=== PATIENT | female | born 1955 | race Caucasian/White ===

== ENCOUNTER 2022-03-02 09:13 | Outpatient (CLI) | payer MEDICARE, OTHER, SELFPAY ==
--- NOTE | 2022-03-02 09:15 | CRLHL7_ITS ---
For Patients: As a result of the Century Cures Act, medical imaging exams and procedure reports are released immediately into your electronic medical record. You may view this report before your referring provider. If you have questions, please contact your health care provider. BILATERAL SCREENING MAMMOGRAM WITH COMPUTER-AIDED DETECTION TECHNIQUE: CC and MLO views were obtained. These mammographic images have been obtained using full-field digital technique. These mammographic images were interpreted with the benefit of computer-aided detection. COMPARISON FILM: 02/20/21, 03/10/20, 03/10/19. FINDINGS: There are scattered areas of fibroglandular density IMPRESSION: There is no radiographic evidence for malignancy. ASSESSMENT: BI-RADS Category 1: Negative RECOMMENDATION: Routine screening mammogram in 1 year. A lay language report of this examination will be provided to the patient. Reece Hodgson M.D. Diagnostic Radiologist [email or web address] MIESHA/Dictated by: Reece Hodgson MD @ 03/02/2022 10:12:00 AM (Electronically Signed)
[2022-03-02 14:49] LABS: Chloride* 98 mmol/L (96-114); Sodium* 138 mmol/L (135-149)
[2022-03-02 14:52] LABS: Carbon Dioxide* 30 mmol/L (20-32); Creatinine* 0.8 mg/dL (0.5-1.5); Estimated Glomerular Filt Rate 81 ml/min
[2022-03-02 14:53] LABS: Blood Urea Nitrogen* 20 mg/dL (7-30); Calcium* 10.5 mg/dL (8.4-10.6); Glucose* 117 mg/dL (60-115)
== END 2022-03-02 09:14 | disposition home or self-care (01) ==
LOC: MAMMO 09:17
PROVIDERS: PCP Internal Medicine; Visit Provider Internal Medicine
DX: Z12.31 Encounter for screening mammogram for malignant neoplasm of breast (principal); I10 Essential (primary) hypertension
CPT/HCPCS: 36415; 77063; 77067; 80048

== ENCOUNTER 2022-08-30 12:49 | Outpatient (CLI) | payer MEDICARE, OTHER, SELFPAY ==
--- NOTE | 2022-08-30 13:00 | MR_ITS ---
[address] [address] Phone:?[phone] Fax:?[phone] Referring Physician Information: Carlos Manley M.D. [address] [place] [id number] Phone:?[phone] Fax:?[phone] Patient:Micheal Hogue D.O.B:?1955 Sex:?Female Phone:?[phone] [facility] MRN:?[id number] Exam Date:?08/30/2022 ? EXAM: MRI of the LEFT SHOULDER, without contrast CLINICAL: Left shoulder pain for greater than one year. Evaluate rotator cuff. COMPARISONS: X-rays dated 08/22/2022. TECHNICAL: MRI sequences of the left shoulder: Axials: PD, PDFS Coronals: PD, T2FS Sagittals: PDFS, T2 SEDATION: None. CONTRAST: None. FINDINGS: Rotator cuff: Supraspinatus/Infraspinatus: There is high-grade near full-thickness to full- thickness tearing involving the majority of the distal supraspinatus tendon as seen on coronal series 4 images 7-9, with partial interstitial/articular surface tearing of the posterior distal supraspinatus tendon extending into the distal infraspinatus tendon. There is moderate tendinosis of the distal supraspinatus and infraspinatus tendons. No significant fatty atrophy of the muscle bellies Teres minor: Moderate fatty infiltration/atrophy of the muscle belly. No significant tendinosis or tendon tear. Subscapularis: No tendinosis, tear or atrophy. Bursae: Subacromial-subdeltoid: Mild bursal fluid. Subcoracoid: Marked bursitis. Coracoacromial arch: Acromion morphology: Type II. No os acromiale. Acromiohumeral space: Within normal limits. Coracohumeral space: Within normal limits. Biceps tendon, long head: Moderate tendinosis of the intra-articular tendon without significant tendon tear or displacement. Glenohumeral joint: Physiologic volume of joint fluid with mild synovitis. Articular cartilage: Approximately 6 mm segment of high-grade/full-thickness chondral loss involves the superomedial humeral head on coronal series 4 image 14. High-grade chondral loss involves the inferomedial humeral head on coronal series 4 image 14. Capsule: No convincing evidence of capsular thickening or injury. Labrum: Scattered ill-defined degenerative changes. No perilabral cyst identified. Bones: No suspicious marrow signal alteration, fracture or dislocation. Acromioclavicular joint: Moderate changes of arthrosis. No AC joint injury/widening. IMPRESSION: 1. High-grade near full-thickness to full-thickness tearing involving the majority of the distal supraspinatus tendon with partial tearing of the remaining posterior distal supraspinatus tendon extending into the distal infraspinatus tendon. Moderate tendinosis of the distal supraspinatus and infraspinatus tendons. 2. Marked subcoracoid bursitis. 3. Moderate tendinosis of the intra-articular long head biceps tendon. 4. Approximately 6 mm segment of high-grade/full-thickness chondral loss involving the superomedial humeral head with high-grade/full-thickness chondral loss also seen to involve the inferomedial humeral head. 5. Moderate AC joint arthrosis. [facility] Electronically signed on 08/31/2022 7:40:00 AM by Tr Phillips D.O.
== END 2022-08-30 12:50 | disposition home or self-care (01) ==
LOC: MRI 12:51
PROVIDERS: PCP Internal Medicine; Visit Provider Orthopaedic Surgery
DX: M25.512 Pain in left shoulder (principal); M75.102 Unspecified rotator cuff tear or rupture of left shoulder, not specified as traumatic; M75.52 Bursitis of left shoulder; M19.012 Primary osteoarthritis, left shoulder
CPT/HCPCS: 73221; 97110; 97140

== ENCOUNTER 2022-10-08 10:00 | Outpatient (RCR) | payer MEDICARE, OTHER, SELFPAY ==
--- NOTE | 2022-07-13 13:31 | PT.OPEX ---
PT [facility] PT [facility] Start: 07/13/22 11:03 Freq: Status: Active Protocol: Document 07/13/22 11:04 JUDY (Rec: 07/13/22 12:06 JUDY [id number]) E-signed By Harry Torrez PT Physical Therapy Outpatient Evaluation Insurance Information Insurance Name Medicare B,[employer] Medical Diagnosis Tension Headaches Cervicalgia Referring MD [place] Subjective Subjective Pt. reports having quite significant headaches in February and March when she was dealing with her mother's declining health and having to drive up to the [employer] regularly etc. Her mother did pass away and since then her headaches have subsided but she is still having them about 3 times a week. They start posteriorly and migrate around her head bilat. like a crown. She has some difficulty lying on her back and she does notice some limitations in neck ROM as well. She also reports having some left shoulder bursitis symptoms that may be affecting her neck as well. PMH includes; achilles repair; bilat. knee meniscus surgeries; HTN; adn allergies. Pain Comments 3-6 Date of Last Physician Visit 05/31/22 Current Work Status Retired Preferred Name Erica Objective Range of Motion CROM: flexion and extension WNL; left rotation and right side bending moderate limitation; right rotation and left side bending mild limitation. Strength deep neck flexor and scapular stabilizer weakness Palpation Hypertonus C-osmar, left more than right hypomobilitiy of left C1,2 and C2-6 segments Assessment Assessment/Impression Objectively, pt. demonstrates; forward head posture; limited CROM with left rotation and right side bending most limited; hypertonus of cervical paraspinals with left side more than right; hypomobility of upper cervical and mid cervical spine segments, more on left side; and deep neck flexor and scapular stabilizer weakness. She would benefit from skilled therapy working on manual therapy and progressive HEP. Primary Functional Limitations sleeping on back; turning head driving Plan of Care Rehabilitation Potential Excellent Physical Therapy Goals 1. Pt. will be independent with HEP for self maintenance in 8 weeks. 2. Pt. will demonstrate improved neck mobility for improved driving ability in 8 weeks. 3. Pt. will report a reduction in subjective NORTON's by at least 50% in 8 weeks. Coordination/Communication With Referral Source Treatment Plan/Direct Interventions Manual Therapy,Neuromuscular Re-ed,Self-Care/Home Management,Therapeutic Activities,Therapeutic Exercises Patient Will Be Discharged From Therapy Independent w/HEP, Independently Progressing Evaluation Billing Complexity Moderate Certification Information Initial Certification Date 07/13/22 Ending Certification Date 10/05/22 Provider Signature Shows Agreement With POC & Medical Necessity Physician Signature & Date Requested Please Sign/Date Here Physician Comment/Change : Physician NPI Number #
== END 2022-10-08 12:05 | disposition home or self-care (01) ==
PROVIDERS: PCP Internal Medicine; Visit Provider Internal Medicine
DX: G44.209 Tension-type headache, unspecified, not intractable (principal); M54.2 Cervicalgia; Z51.89 Encounter for other specified aftercare
CPT/HCPCS: 97110; 97140; 97162

== ENCOUNTER 2022-10-15 10:37 | Outpatient (CLI) | payer MEDICARE, OTHER, SELFPAY | END 2022-10-15 10:38 | disposition home or self-care (01) | PROVIDERS: PCP Internal Medicine; Visit Provider Internal Medicine | DX: Z01.818 Encounter for other preprocedural examination (principal) | CPT/HCPCS: 80048 ==

== ENCOUNTER 2022-10-18 08:49 | Day surgery (SDC) | payer MEDICARE, OTHER, SELFPAY ==
[2022-10-18] VITALS (17 sets, daily range): BP systolic 122–144; BP diastolic 63–82; PULSE 52–68; RESP 14–20; TEMP 35.8–37.1; O2SAT 93–100; BMI 30.9
--- NOTE | 2022-10-18 09:21 | SUR.PREOP ---
home covid test, negative
[2022-10-18] MEDS: LACTATED RINGERS 1000 ML 1,000 ML 100 ML IV ×2 (09:50→12:16)
[2022-10-18] MEDS: SODIUM CHLORIDE 0.9 % (FLUSH) 10 ML SYRINGE IVF (09:51)
[2022-10-18] MEDS: ACETAMINOPHEN 500 MG TABLET 1000 MG PO (09:55)
[2022-10-18] MEDS: OXYCODONE (CR) 10 MG TAB.ER.12H PO (09:55)
[2022-10-18] MEDS: CELECOXIB 200 MG CAPSULE PO (09:55)
[2022-10-18] MEDS: fentaNYL 100 MCG/2 ML inj IVP (10:57)
--- NOTE | 2022-10-18 10:57 | SUR.PREOP ---
TIME?OUT:?1055, left shoulder PT/RN/MDA?VERIFICATION?OF?SURGICAL?SITE,?PROCEDURE,?AND?CONSENT OBTAINED?PRIOR?TO?INVASIVE?PROCEDURE.
[2022-10-18] MEDS: MIDAZOLAM HCL 1 MG/ML inj IVP (10:58)
--- NOTE | 2022-10-18 11:09 | W.PM.NB ---
Nerve Block Nerve Block Time Seen by Provider: 11:09 Date Seen: 10/18/22 Type of block requested by surgeon for post-operative analgesia: supraclavicular Side: left Time out performed: Yes Verification of patient name: Yes Verification of date of : Yes Site marking: site marked Name of person performing procedure: manty jer Continuous monitoring Was continuous monitoring of O2 sat, B/P, nuclear monitoring technician, recorded every 15 minutes?: Yes Procedure Checklist: sterile prep, needles and gloves Ultrasound guided. Images saved: Yes Medications given in 5ml increments after negative aspiration: Ropivicaine %: 0.5 mL: 20 Decadron (mg): 10 Precedex (mcg): 20 Patient tolerated procedure well: Yes Block Charges Block Charge (with Pro Fee): Intercostal Nerve Block Use of Ultrasound Machine for Block: Yes- US Guidance/pain block
[2022-10-18] MEDS: CEFAZOLIN 2 GM INJ IVP (11:32)
--- NOTE | 2022-10-18 13:08 | PM.ORPRC ---
Procedure Note Date of procedure: 10/18/22 Procedure: PREOPERATIVE DIAGNOSIS: Left shoulder rotator cuff tear, AC joint arthrosis, biceps tendinopathy POSTOPERATIVE DIAGNOSIS: Left shoulder rotator cuff tear, AC joint arthrosis, biceps tendinopathy NAME OF OPERATION: Left shoulder arthroscopic subacromial decompression, distal clavicle excision, mini open rotator cuff repair SURGEON: Carlos Manley MD ASSOCIATE PROFESSOR OF ENGINEERING: Maya Anders PA-C ANESTHESIA: Supraclavicular block plus general endotracheal ESTIMATED BLOOD LOSS: 5 mL COMPLICATIONS: None SPECIMENS: None DRAINS: None PREOPERATIVE ANTIBIOTICS: Ancef 2 grams INDICATIONS: The patient is a 67-year-old with a history of left shoulder pain secondary to the above diagnoses. Despite appropriate non operative management, they continue to have symptoms. Operative intervention was recommended. The risks, benefits and expected outcomes were discussed in detail. These included but were not limited to: Infection, bleeding, injury to blood vessel or nerve, venous thromboembolism. All questions were answered to their satisfaction. PROCEDURE: A supraclavicular block was placed by Anesthesia. General anesthesia was administered. The patient was placed in the high beach chair position. The left shoulder was prepped and draped in the usual sterile fashion. The glenohumeral joint was infiltrated with 20 mL of normal saline with epinephrine. The posterior portal was established, the arthroscope was introduced. The anterior portal was established, Diagnostic arthroscopy was performed with findings as follows: The biceps has a significant amount of intra-articular tendinopathy. The there is age-appropriate, degenerative tearing of the anterior, posterior and superior labrum. Articular surfaces on the humeral head is normal. Articular surface on the glenoid shows 2 small areas of grade 3 traveler changer the far anterior and inferior aspect of the glenoid. There are no loose bodies. There is a full-thickness tear of the supraspinatus and infraspinatus. The biceps was tenotomized with the arthroscopic scissors. The labrum was debrided with the shaver. The labrum and unstable chondral flaps on the glenoid were debrided with the shaver. The arthroscope was placed in the subacromial space, the lateral portal was established. The Arthrex [place] was used to dissect the acromion free. The CA ligament was recessed off the anterior acromion, the AC joint was exposed. The acromioplasty was performed with the bur in the posterior portal. The bur was then placed in the lateral portal and the lateral and anterior aspect of the acromion were resected. The undersurface of the distal clavicle was resected through the lateral portal. Finally, the bur was placed in the anterior portal and the remainder of the distal clavicle was resected for a total of 10 mm. An accessory anterolateral portal was placed. The subacromial/subdeltoid bursa was aggressively debrided. There is a full-thickness tear of the supraspinatus and infraspinatus. Arthroscopic instruments were removed. The accessory anterolateral portal was extended proximally and distally, subcutaneous dissection was taken with electrocautery to the deltoid. The deltoid was divided in line with its fibers. The static retractor was placed. The subacromial/subdeltoid bursa was debrided with the Harrison scissors. There is a small area of poor quality supraspinatus still attached to the greater tuberosity anteriorly. This was released with the scalpel. A small portion of this tendinopathic tissue was sharply debrided. The greater tuberosity was debrided to punctate bleeding bone using the arthroscopic bur. A whip stitch was placed in the biceps. A fiber tape was placed in the upper subscap in an inverted mattress fashion. The sutures were placed in a SwiveLock anchor at the top of the bicipital groove to repair the upper border of the subscap and to complete the biceps tenodesis. Two Arthrex BioComposite SwiveLock anchors were placed just off the articular surface. Both limbs of the FiberWire and fiber tape were passed using the scorpion. A fiber link was placed in the leading edge of the rotator cuff x2. We tied the 2 central FiberWire sutures over the rotator cuff. We then proceeded with a lateral row of SwiveLock anchors x 2 crossing the FiberTape and incorporating the FiberWire and fiber link into each lateral row anchor. A suture was placed in the rotator interval. This provides an anatomic, watertight repair of the rotator cuff. There is no tension on the repair with the shoulder at 0? abduction. The wound was irrigated with normal saline off the pump. The deltoid was repaired with an 0 Vicryl in an interrupted [id number] fashion. Subcutaneous tissues were closed with a 3-0 Vicryl. Skin was closed with a 3-0 Monocryl in a subcuticular fashion. A dry dressing, polar care and sling were applied. Sponge and needle counts were correct x2. The patient tolerated the procedure well. There were no apparent complications. They were carefully transferred to the hospital bed and taken to the postanesthesia care unit in satisfactory condition. PLAN: The patient will be discharged to home. No active range of motion of the shoulder will be allowed for 6 weeks postoperatively. They can work on active range of motion of the elbow, wrist and fingers. They will follow up in the office next week for a wound check and an AP and transscapular Y-view of the shoulder prior to being seen.
[2022-10-18] MEDS: ONDANSETRON 2 MG/ML inj 4 MG IVP (13:19)
--- NOTE | 2022-10-18 15:35 | W.ANESCHARGE ---
Anesthesia Charges Start Date/Time Anesthesia Start Date: 10/18/22 Anesthesia Start Time: 11:20 Stop Date/Time Anesthesia Stop Date: 10/18/22 Anesthesia Stop Time: 13:46
== END 2022-10-18 16:46 | disposition home or self-care (01) ==
PROVIDERS: PCP Internal Medicine; Visit Provider Orthopaedic Surgery
PROC: (CPT 23412; principal; 2022-10-18 11:00)
DX: M75.122 Complete rotator cuff tear or rupture of left shoulder, not specified as traumatic (principal); M75.22 Bicipital tendinitis, left shoulder; M19.012 Primary osteoarthritis, left shoulder
CPT/HCPCS: 29826; 29824; 29828; 23412; 01630; 64420; 76942; A9270; C1713; J0330; J0690; J1100; J2250; J2405; J2704; J2795; J3010; J3490; J7120; L3670

== ENCOUNTER 2023-01-31 10:45 | Outpatient (RCR) | payer MEDICARE, OTHER, SELFPAY ==
--- NOTE | 2022-10-29 09:45 | PT.OPEX ---
PT [facility] Eval PT [facility] Out[facility] Eval Start: 10/29/22 07:23 Freq: Status: Active Protocol: Document 10/29/22 07:42 JUDY (Rec: 10/29/22 09:43 JUDY [id number]) E-signed By Harry Torrez, PT Physical Therapy Outpatient Evaluation Insurance Information Insurance Name Medicare B,[employer] Medical Diagnosis Left shoulder rotator cuff repair with biceps tenodesis Treating Diagnosis Left shoulder pain Decreased left shoulder ROM Left shoulder weakness Referring MD Manley Subjective Subjective Pt. reports undergoing a left shoulder rotator cuff repair with bicep tenodesis. She had the supraspinatus repaired with the upper border of the subscapularis as well. She is wearing a sling and is to avoid any AROM for 6 weeks post. op. Her pain has been well controlled so far. She does have a lot of swelling and bruising in the shoulder area along with left upper back/neck pain symptoms, probably irritated by the sling. PMH includes, neck pain , NORTON's, HTN and allergies. Pain Comments 07/24 today Date of Surgery (If applicable) 10/18/22 Current Work Status Retired Preferred Name Erica Objective Range of Motion Left shoulder PROM: flexion 80 deg; ER to 10 deg; abduction to 80 deg. Right shoulder AROM is WNL Palpation Hypertonus of left upper trap, levator scapula, left deltoid and cervical paraspinals. Assessment Assessment/Impression Objectively, pt, demonstrates; normal right shoulder AROM; decreased left shoulder PROM with 80 deg of flexion and abduction, and 10 deg of ER; bruising and mild swelling of left shoulder/arm; hypertonus of left neck, upper back and shoulder areas; and good AROM of left elbow, wrist and hand. She would benefit from skilled therapy working on progressive left shoulder ROM and strengthening when appropriate. Primary Functional Limitations reaching, lifting, pulling, ADL's Plan of Care Rehabilitation Potential Excellent Physical Therapy Goals 1. Pt. will be indep. with HEP for self maintenance in 12 weeks. 2. Pt. will demonstrate improved shoulder ROM to functional levels in 8 weeks. 3. Pt. will be able to raise arm overhead for ADL's without difficulty in 12 weeks. 4. Pt. will demonstrate functional left shoulder strength for normal ADL's in 16 weeks. Coordination/Communication With Referral Source Treatment Plan/Direct Interventions Joint Mobilization,Manual Therapy,Neuromuscular Re-ed, Self-Care/Home Management, Therapeutic Activities, Therapeutic Exercises Frequency/Duration 1-2 times a week for 16 weeks. Patient Will Be Discharged From Therapy Independent w/HEP, Independently Progressing Evaluation Billing Complexity Low Certification Information Initial Certification Date 10/29/22 Ending Certification Date 01/22/23 Provider Signature Shows Agreement With POC & Medical Necessity Physician Signature & Date Requested Please Sign/Date Here Physician Comment/Change : Physician NPI Number #
== END 2023-05-10 08:46 | disposition home or self-care (01) ==
PROVIDERS: PCP Internal Medicine; Visit Provider Orthopaedic Surgery
DX: Z98.890 Other specified postprocedural states (principal); M25.512 Pain in left shoulder; R53.1 Weakness; Z74.09 Other reduced mobility; Z51.89 Encounter for other specified aftercare
CPT/HCPCS: 97110; 97140; 97161

== ENCOUNTER 2023-02-26 09:17 | Outpatient (CLI) | payer MEDICARE, OTHER, SELFPAY ==
--- NOTE | 2023-02-26 09:15 | CRLHL7_ITS ---
For Patients: As a result of the Century Cures Act, medical imaging exams and procedure reports are released immediately into your electronic medical record. You may view this report before your referring provider. If you have questions, please contact your health care provider. BILATERAL SCREENING MAMMOGRAM WITH COMPUTER-AIDED DETECTION TECHNIQUE: CC and MLO views were obtained. These mammographic images have been obtained using full-field digital technique. These mammographic images were interpreted with the benefit of computer-aided detection. COMPARISON FILM: 03/02/22, 02/20/21, 03/10/20. FINDINGS: There are scattered areas of fibroglandular density IMPRESSION: There is no radiographic evidence for malignancy. ASSESSMENT: BI-RADS Category 1: Negative RECOMMENDATION: Routine screening mammogram in 1 year. A lay language report of this examination will be provided to the patient. Reece Hodgson M.D. Diagnostic Radiologist [email or web address] SELENE/chrissy / be/Dictated by: Reece Hodgson MD @ 02/27/2023 1:29:00 PM (Electronically Signed)
== END 2023-02-26 09:18 | disposition home or self-care (01) ==
LOC: MAMMO 09:17
PROVIDERS: PCP Internal Medicine; Visit Provider Internal Medicine
DX: Z12.31 Encounter for screening mammogram for malignant neoplasm of breast (principal)
CPT/HCPCS: 77067

== ENCOUNTER 2023-03-01 08:27 | Outpatient (CLI) | payer MEDICARE, OTHER, SELFPAY | END 2023-03-01 08:28 | disposition home or self-care (01) | PROVIDERS: PCP Internal Medicine; Referring Provider Internal Medicine; Visit Provider Internal Medicine | DX: I10 Essential (primary) hypertension (principal); R73.03 Prediabetes | CPT/HCPCS: 80048 ==

== ENCOUNTER 2024-02-27 07:55 | Outpatient (CLI) | payer MEDICARE, OTHER, SELFPAY ==
--- OUTSIDE RECORDS SUMMARY | 2024-02-28 11:43 | XMS_ITS | Clinical Summary ---
Author Organization [employer] [facility] Address [place], [place] [address] Care Team Providers Care Production Potter Name Role Phone Chandni Callaway MD Primary Care Provider +1- [phone] Allergies Active Allergy Reactions Criticality Noted Date Comments Lisinopril Cough 04/20/2020 Shellfish Derived Nausea And Vomiting 0 Shrimp, scallops, oysters Patient denies any problems with topical betadine Sulfisoxazole Edema 04/20/2020 Eye drop: Eye swelled shut Medications Medication Sig Dispensed Refills Start Date End Date Status hydroCHLOROthiazide 12.5 mg capsule Take 12.5 mg by mouth once daily. Active propylene glycol (SYSTANE COMPLETE) 0.6 % ophthalmic solution Place 1 Drop into both eyes 4 times daily. Active cholecalciferol, Vitamin D3, 2,000 unit tablet Take 2,000 Units by mouth once daily. Active atenoloL (TENORMIN) 25 mg tablet Take 25 mg by mouth once daily. Active famotidine (PEPCID) 10 mg tablet Take 10 mg by mouth once daily. Active triamcinolone (ARISTOCORT; KENALOG) 0.1 % cream Apply topically to affected area(s) 2 times daily. Active CALCIUM CARBONATE-VITAMIN D3 ORAL Take 1 tablet by mouth once daily. Active mv-min/iron/folic/calc ium/vitK (WOMEN'S MULTIVITAMIN ORAL) Take by mouth. Ac tive atropine (ISOPTO ATROPINE) 1 % ophthalmic solution Place 1 Drop into left eye 2 times daily. 5 mL 01/13/2021 Active erythromycin ophthalmic ointment 0.5% Apply 1 Strip to lower eye lid of left eye at bedtime. 3.5 g 01/13/2021 Active ofloxacin 0.3 % ophthalmic (OCUFLOX) 0.3 % ophthalmic solution Place 1 Drop into left eye 4 times daily. 5 mL 01/13/2021 Active prednisoLONE acetate 1% ophthalmic (ECONOPRED PLUS, PRED FORTE, OMNIPRED) suspension Place 1 Drop into left eye 4 times daily. SHAKE WELL 15 mL 2 01/13/2021 Active Immunizations Name Administration Dates Next Due Td (Age >=7 Years) 05/10/2005 Family History Medical History Relation Name Comments Cancer-breast Maternal Aunt Stroke Maternal Grandmother Cancer Maternal Uncle thyroid Hypertension Mother Cancer-breast Other cousin Hypertension Sister Relation Name Status Comments Maternal Aunt Maternal Grandmother Maternal Uncle Mother Other Sister Social History Tobacco Use Types Packs/Day Years Used Date Smoking Tobacco: Never Smokeless Tobacco: Never Alcohol Use Standard Drinks/Week Comments Yes 0 (1 standard drink = 0.6 oz pur e alcohol) 3-6/month , social Sex and Gender Information Value Date Recorded Sex Assigned at Not on file Gender Identity Not on file Sexual Orientation Not on file Obstetrics History Last Filed Vital Signs Vital Sign Reading Time Taken Comments Blood Pressure 158/82 01/13/2021 10:21 AM CDT Pulse 60 01/13/2021 10:21 AM CDT Temperature 37.1 ??C (98.7 ??F) 01/13/2021 7:30 AM CD T Respiratory Rate 16 01/13/2021 10:21 AM CDT Oxygen Saturation 100% 01/13/2021 10:21 AM CDT Inhaled Oxygen Concentration - - Weight 81.6 kg (180 lb) 10/28/2020 9:08 PM CDT Height 165.1 cm (5' 5) 08/11/2020 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 Body Mass Index 29.95 08/11/2020 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 Plan of Treatment Not on file Medical Devices Implanted Type Area Community Living Specialist Device Identifier Shelf Expiration Date Model / Serial / Lot Sleeve Oval [id number] - [id number] Implanted:Qty: 1 on 04/28/2020 by Chin Carias MD at [facility] Left: Eye [employer] 05/29/2026 S3084# / / [id number] Strip Silcn [id number] btician - [id number] Implanted:Qty: 1 on 04/28/2020 by Chin Carias MD at [facility] Left: Eye [employer] 04/28/2026 [id number]# / / [id number] Advance Directives * Full Code (Latest Code Status on File) Date Activated Date Inactivated Comments 01/13/2021 7:19 AM 01/13/2021 12:42 PM Question Answer Comments Code Status Discussion: Not Discussed * Full Code Date Activated Date Inactivated Comments 11/01/2020 7:10 AM 11/01/2020 12:54 PM Question Answer Comments Code Status Discussion: Not Discussed * Full Code Date Activated Date Inactivated Comments 04/28/2020 3:36 PM 04/29/2020 1:25 AM Question Answer Comments Code Status Discussion: Per Existing Order * Full Code Date Activated Date Inactivated Comments 04/22/2020 12:35 PM 04/22/2020 6:38 PM Question Answer Comments Code Status Discussion: Not Discussed Care Teams Production Potter Relationship Specialty Start Date End Date Chandni Callaway MD [address] [place] [id number] PCP - General Internal Medicine 04/13/20
== END 2024-02-27 07:56 | disposition home or self-care (01) ==
LOC: NFLDREF 02-28 11:42
PROVIDERS: PCP Internal Medicine; Referring Provider Internal Medicine; Visit Provider Internal Medicine
DX: I10 Essential (primary) hypertension (principal); R73.03 Prediabetes
CPT/HCPCS: 80048

== ENCOUNTER 2024-03-02 09:19 | Outpatient (CLI) | payer MEDICARE, OTHER, SELFPAY ==
--- OUTSIDE RECORDS SUMMARY | 2024-03-02 09:41 | XMS_ITS | Clinical Summary ---
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 Plan of Treatment Not on file Medical Devices Implanted Type Area Dental Chairside Assistant Device Identifier Shelf Expiration Date Model / Serial / Lot Sleeve Oval [id number] - [id number] Implanted:Qty: 1 on 04/28/2020 by Chin Carias MD at [facility] Left: Eye [employer] 05/29/2026 S3084# / / [id number] Strip Silcn [id number] btician - [id number] Implanted:Qty: 1 on 04/28/2020 by Chin Carias MD at [facility] Left: Eye [employer] 04/28/2026 S4050# / / [id number] Advance Directives * Full Code (Latest Code [...] Code Status Discussion: Not Discussed Care Teams Commercial Sales Representative Relationship Specialty Start Date End Date Chandni Callaway MD [address] [place] [id number] PCP - General Internal Medicine 04/13/20
--- NOTE | 2024-03-02 10:26 | W.ANESCHARGE ---
Anesthesia Charges Start Date/Time Anesthesia Start Date: 03/02/24 Anesthesia Start Time: 10:41 Stop Date/Time Anesthesia Stop Date: 03/02/24 Anesthesia Stop Time: 11:09
--- NOTE | 2024-03-02 11:09 | W.ANESCHARGE ---
Anesthesia Charges Start Date/Time Anesthesia Start Date: 03/02/24 Anesthesia Start Time: 10:41 Stop Date/Time Anesthesia Stop Date: 03/02/24 Anesthesia Stop Time: 11:09
== END 2024-03-02 09:20 | disposition home or self-care (01) ==
LOC: OP CLINIC 09:20
PROVIDERS: PCP Internal Medicine; Visit Provider Internal Medicine
DX: Z12.11 Encounter for screening for malignant neoplasm of colon (principal); K63.5 Polyp of colon; K57.30 Diverticulosis of large intestine without perforation or abscess without bleeding; Z80.0 Family history of malignant neoplasm of digestive organs
CPT/HCPCS: 00811; 45380; 88305; J2704

== ENCOUNTER 2024-04-09 10:00 | Outpatient (CLI) | payer MEDICARE, OTHER, SELFPAY ==
--- OUTSIDE RECORDS SUMMARY | 2024-04-09 10:04 | XMS_ITS | Clinical Summary ---
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 Body Mass Index 29.95 08/11/2020 4:13 PM MAKE UP ARRANGER Plan of Treatment Not on file Medical Devices Implanted Type Area Service Trainer Device Identifier Shelf Expiration Date Model / Serial / Lot Sleeve Oval S3084 - [id number] Implanted:Qty: 1 on 04/28/2020 by Chin Carias MD at [facility] Left: Eye [employer] 05/29/2026 S3084# / / [id number] Strip Silcn [id number] btician - [id number] Implanted:Qty: 1 on 04/28/2020 by Chin Carias MD at [facility] Left: Eye [employer] 04/28/2026 S4050# / / [id number] Procedures Procedure Name Priority Date/Time Associated Diagnosis Comments LAB TRACKING EVENT Routine 03/02/2024 10 :55 AM CDT PATH TISSUE EXAM Routine 03/02/2024 10:5 5 AM CDT from Last 3 Months Results * LAB TRACKING EVENT (03/02/2024 10:55 AM CDT) Other (Other) Client Collect / Unknown 03/02/2024 10:55 AM CDT 03/02/2024 10:13 PM CDT Varinder Laguerre MD LAB BILL ONLY [facility] [address] [place] [address], * PATH TISSUE EXAM (03/02/2024 10:55 AM CDT) Case Report Pathology Report ?Case: [id number] ? Authorizing Provider: ??Varinder Laguerre MD ?Collected: ? 03/02/2024 1055 ? Ordering Location: ? [facility] ?Received: ?03/03/2024 0859 ? Pathologist: ? Aaron Gaviria, ? MD ? Specimens: ?? A) - Cecal Polyp ? B) - Sigmoid Polyp ? 03/04/2024 11:06 AM [facility] Final Diagnosis A) COLON, CECUM, POLYPECTOMY: 1. Tubular adenoma 2. Negative for high grade dysplasia 3. Per the colonoscopy report: ?? a. Polyp size: 2 mm ?? b. Resection: Complete ?? c. Retrieval: Complete B) COLON, SIGMOID, POLYPECTOMIES: Hyperplastic polyps (2) 03/04/2024 11:06 AM T [facility] Clinical Information Family history of colon cancer 03/04/2024 11:06 AM [facility] Gross Description A) Received in formalin are 4 springer mucosal fragments averaging 4 mm in greatest dimension, which are entirely submitted in one cassette. It is labeled with the patient's name and designated cecum polyp. B) Received in formalin are 2 springer mucosal fragments averaging 7 mm in greatest dimension, which are entirely submitted in one cassette. It is labeled with the patient's name and designated sigmoid polyps. Yolis Connolly 03/03/2024 1:34 PM 03/04/2024 11:06 AM CDT [facility] Microscopic Description The final diagnosis is based on microscopic examination of appropriate sections of all specimens. 03/04/2024 11:06 AM CDT [facility] Additional [facility] - [address], [place] [address] 03/04/2024 11:06 AM CDT [facility] Other (Cecal Polyp) 03/02/2024 10:55 AM CDT 03/03/2024 8:59 AM CDT Specimen (specimen) (Sigmoid Polyp) 03/02/2024 10:55 AM CDT 03/03/2024 8:59 AM CDT Varinder Laguerre MD PATHOLOGY/CYTOLOGY [facility] [address] [place] [address], from Last 3 Months Advance Directives * Full Code (Latest Code [...] Code Status Discussion: Not Discussed Care Teams Associate Director Regulatory Affairs Relationship Specialty Start Date End Date Chandni Callaway MD [address] [place] [id number] PCP - General Internal Medicine 04/13/20
--- NOTE | 2024-04-09 10:15 | CRLHL7_ITS ---
For Patients: As a result of the Century Cures Act, medical imaging exams and procedure reports are released immediately into your electronic medical record. You may view this report before your referring provider. If you have questions, please contact your health care provider. BILATERAL SCREENING MAMMOGRAM WITH COMPUTER-AIDED DETECTION AND TOMOSYNTHESIS TECHNIQUE: CC and MLO views were obtained. These mammographic images have been obtained using full-field digital technique. These mammographic images were interpreted with the benefit of computer-aided detection. Breast Tomosynthesis was used in this interpretation. COMPARISON FILM: 02/26/23, 03/02/22, 02/20/21. FINDINGS: The breasts are heterogeneously dense, which may obscure small masses. IMPRESSION: There is no radiographic evidence for malignancy. ASSESSMENT: BI-RADS Category 1: Negative RECOMMENDATION: Routine screening mammogram in 1 year. A lay language report of this examination will be provided to the patient. Reece Hodgson M.D. Diagnostic Radiologist [email or web address] SP/Dictated by: Reece Hodgson MD @ 04/17/2024 10:01:00 AM (Electronically Signed)
== END 2024-04-09 10:01 | disposition home or self-care (01) ==
LOC: MAMMO 10:01
PROVIDERS: PCP Internal Medicine; Visit Provider Internal Medicine
DX: Z12.31 Encounter for screening mammogram for malignant neoplasm of breast (principal); R92.333 Mammographic heterogeneous density, bilateral breasts
CPT/HCPCS: 77063; 77067

== ENCOUNTER 2024-04-13 11:15 | Outpatient (RCR) | payer MEDICARE, OTHER, SELFPAY ==
--- NOTE | 2024-01-14 18:03 | PT.OPEX ---
PT [place] Outpatient Eval PT [facility] Outpatient Eval Start: 01/14/24 13:16 Freq: Status: Active Protocol: Document 01/14/24 15:57 JUDY (Rec: 01/14/24 17:59 JUDY [id number]) E-signed By Harry Torrez PT Physical Therapy Outpatient Evaluation Insurance Information Insurance Name Medicare B Medical Diagnosis Right hip bursitis Referring MD Manley Subjective Subjective Pt. states that she has been having right lateral hip pain symptoms since October after doing a long and fast walk without stretching. Her pain got quite bad with Orthopedic consult on 12/18/23. She has been able to reduce the overall pain symptoms by getting some massages and performing self muscle release with ball and foam roller use . The pain is currently at 3-4 /10 with limited walking, stair ambulation, and lying on right side. No history of any hip surgeries noted. She is quite active with walking and hiking regularly. She also complains of right sided anterior shoulder impingement pain with limited reaching and lifting abilities. She had a left side shoulder RCR surgery which recovered well with therapy. PMH also includes HTN . Pain Comments 3-4 Date of Last Physician Visit 12/18/23 Preferred Name Erica Objective Other/Pertinent Objective LROM: WFL no provocation of pain Right hip ROM: 10 deg of IR and 45 ER bilaterally Strength: Right gluteus medius weakness Gait: mild functional right gluteus medius weakness SLR/slump: negative bilat. Palpation: pain and hypertonus of right gluteus medius/ piriformis and greater trochanter. Assessment Assessment/Impression Objectively, pt. demonstrates; right gluteus medius weakness with mild Trendelenburg in single leg stance; pain and hypertonus of right gluteus medius; mild tightness of hip ER and piriformis; good bilateral shoulder ROM; pain with palpation of right anterior cuff and biceps; negative Neers; and mild posterior cuff and scapular stabilizer weakness. She would benefit from skilled therapy working on progressive gluteal flexibility and strengthening along with posterior cuff and scapular strengthening. Primary Functional Limitations lying on right side; walking; hiking; steps; lifting/ reaching with right arm Plan of Care Rehabilitation Potential Excellent Physical Therapy Goals 1. Pt. will be independent with HEP for self maintenance in 12 weeks. 2. Pt. will demonstrate improved right hip ER ROM in 8 -12 weeks. 3. Pt. will demonstrate improved righ hip/gluteal strength in 8-12 weeks. Coordination/Communication With Referral Source Treatment Plan/Direct Interventions Joint Mobilization,Manual Therapy,Self-Care/Home Management,Therapeutic Exercises Frequency/Duration 4-8 visits over 12 weeks. Patient Will Be Discharged From Therapy Independent w/HEP, Independently Progressing Evaluation Billing Complexity Low Certification Information Initial Certification Date 01/14/24 Ending Certification Date 04/13/24 Provider Signature Required Yes Provider Signature Shows Agreement With POC & Medical Necessity Physician NPI Number Write NPI# Here Physician Comment/Change : Physician Signature & Date Requested Please Sign/Date Here
== END 2024-05-14 15:38 | disposition home or self-care (01) ==
PROVIDERS: PCP Internal Medicine; Visit Provider Orthopaedic Surgery
DX: M70.71 Other bursitis of hip, right hip (principal); M76.00 Gluteal tendinitis, unspecified hip; R53.1 Weakness; M25.811 Other specified joint disorders, right shoulder; Z51.89 Encounter for other specified aftercare
CPT/HCPCS: 97110; 97140; 97161

== ENCOUNTER 2025-03-02 08:00 | Outpatient (CLI) | payer MEDICARE, OTHER, SELFPAY | END 2025-03-02 08:01 | disposition home or self-care (01) | LOC: NFLDREF 03-09 03:00 | PROVIDERS: PCP Internal Medicine; Referring Provider Internal Medicine; Visit Provider Internal Medicine | DX: R73.03 Prediabetes (principal); I10 Essential (primary) hypertension; E78.5 Hyperlipidemia, unspecified; Z79.899 Other long term (current) drug therapy | CPT/HCPCS: 80048; 80061; 82306 ==

== ENCOUNTER 2025-04-27 13:22 | Outpatient (CLI) | payer MEDICARE, OTHER, SELFPAY ==
--- NOTE | 2025-04-27 13:20 | CRLHL7_ITS ---
For Patients: As a result of the Century Cures Act, medical imaging exams and procedure reports are released immediately into your electronic medical record. You may view this report before your referring provider. If you have questions, please contact your health care provider. INDICATION: BILATERAL SCREENING MAMMOGRAM, ASYMPTOMATIC 70 Y/O FEMALE COMPARISON: 04/09/2024, 02/26/2023, 03/02/2022 TECHNIQUE: Digital mammogram in CC and MLO projections including computer-aided detection (CAD) and tomosynthesis. BREAST COMPOSITION: There are scattered areas of fibroglandular density. FINDINGS: No suspicious findings. ASSESSMENT: BI-RADS 1 Negative RECOMMENDATION: Annual screening mammogram. A lay language report of this examination will be provided to the patient. Dictated by: Lorena Lo MD @ 04/28/2025 07:07:45 (Electronically Signed)
== END 2025-04-27 13:23 | disposition home or self-care (01) ==
LOC: MAMMO 13:23
PROVIDERS: PCP Internal Medicine; Visit Provider Internal Medicine
DX: Z12.31 Encounter for screening mammogram for malignant neoplasm of breast (principal); E83.52 Hypercalcemia
CPT/HCPCS: 77063; 77067; 82310; 83970

== ENCOUNTER 2025-05-31 08:21 | Outpatient (CLI) | payer MEDICARE, OTHER, SELFPAY | END 2025-05-31 08:22 | disposition home or self-care (01) | LOC: NFLDREF 06-03 06:53 | PROVIDERS: PCP Internal Medicine; Referring Provider Internal Medicine; Visit Provider Internal Medicine | DX: E83.52 Hypercalcemia (principal) | CPT/HCPCS: 82310 ==